=== PATIENT | male | born 1995 | race Caucasian/White ===

== ENCOUNTER 2018-12-03 17:38 | Outpatient (REF) | payer SELFPAY ==
[2018-12-03 18:43] LABS: TSH (W/Ref FT4) 1.79 uIU/mL (0.358-3.74)
== END 2018-12-03 17:58 ==
LOC: NCHCN 17:38
PROVIDERS: PCP Nurse Practitioner Adult Health; Visit Provider Nurse Practitioner Family
DX: E03.9 Hypothyroidism, unspecified (principal)
CPT/HCPCS: 84443

== ENCOUNTER 2021-01-07 17:20 | Outpatient (REF) | payer SELFPAY ==
[2021-01-07 19:55] LABS: TSH (W/Ref FT4) 1.07 uIU/mL (0.36-3.74)
== END 2021-01-07 17:21 | disposition home or self-care (01) ==
LOC: NCHCN 17:20
PROVIDERS: PCP Nurse Practitioner Adult Health; Visit Provider Nurse Practitioner Family
DX: E03.9 Hypothyroidism, unspecified (principal)
CPT/HCPCS: 84443